=== PATIENT | female | born 1955 | race Caucasian/White ===

== ENCOUNTER 2021-09-24 09:03 | Outpatient (CLI) | payer MEDICARE | END 2021-09-24 09:04 | disposition home or self-care (01) | LOC: CSHULT 09:03 | PROVIDERS: ATTEND Student in an Organized Health Care Education/Training Program | DX: R11.2 Nausea with vomiting, unspecified (principal); R19.7 Diarrhea, unspecified; K82.8 Other specified diseases of gallbladder | CPT/HCPCS: 76700 ==

== ENCOUNTER 2023-11-15 08:04 | Outpatient (CLI) | payer MEDICARE | END 2023-11-15 08:05 | disposition home or self-care (01) | LOC: CSHULT 08:04 | PROVIDERS: ATTEND Family Medicine | DX: R92.8 Other abnormal and inconclusive findings on diagnostic imaging of breast (principal); N63.25 Unspecified lump in the left breast, overlapping quadrants ==

== ENCOUNTER → 2023-11-22 | Day surgery (SDC) | payer MEDICARE | LOC: CSHULT 12:44 | PROVIDERS: ATTEND Family Medicine | PROC: 0H95XZX Drainage of Chest Skin, External Approach, Diagnostic (ICD-10-PCS; principal; 2023-11-22) | DX: N64.89 Other specified disorders of breast (principal) | CPT/HCPCS: 19083; 88305 ==

== ENCOUNTER 2024-10-15 15:12 | Outpatient (CLI) | payer MEDICARE | END 2024-10-15 15:13 | disposition home or self-care (01) | LOC: CSHMAMMO 15:12 | PROVIDERS: ATTEND Family Medicine | DX: M81.0 Age-related osteoporosis without current pathological fracture (principal); M85.831 Other specified disorders of bone density and structure, right forearm; M85.832 Other specified disorders of bone density and structure, left forearm | CPT/HCPCS: 77080 ==

== ENCOUNTER 2025-06-11 14:03 | Outpatient (CLI) | payer MEDICARE | END 2025-06-11 14:04 | disposition home or self-care (01) | LOC: CSHMAMMO 14:03 | PROVIDERS: ATTEND Surgery | DX: Z12.31 Encounter for screening mammogram for malignant neoplasm of breast (principal); Z91.89 Other specified personal risk factors, not elsewhere classified | CPT/HCPCS: 77063; 77067 ==